=== PATIENT | female | born 1940 | race Caucasian/White ===

== ENCOUNTER 2018-04-14 04:20 | Inpatient (IN) ==
--- NOTE | 2018-04-14 04:30 | Emergency Department Note ---
Disposition Clinical Impression: Urinary tract infection, Altered mental status Disposition: Transfer Short-Term Hosp Condition: Fair Time of Disposition: 06:10 ( will admit for observation) General Adult HPI - General Chief complaint: ED Urogenital-Female Stated complaint: possible uti/ams Time Seen by Provider: 04/14/18 04:22 Source: EMS, other ([facility] personnel) Mode of arrival: EMS Limitations: altered mental status Nursing Notes Reviewed: Yes Vital Signs Reviewed: Yes - History of Present Illness HPI Narrative: 77-year-old female who presented to the emergency department department via EMS with complaints of confusion per long term staff. Normally patient is alert and oriented 4, however this evening she has been confused to time and to events and what is occurring. Patient has had problems with recurrent urinary tract infections. 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 She reports that she really does not know why she is here in the ER, but long term reported that they will try to collect the urine from the patient and tried to do a CATh ua on her, and noted that patient had a lot of dry Tissue around her urethra area, and they had to end up taking normal saline to break up the tissue. Patient had this one got agitated, and ran out of the long term into the street, and had to be detained. Onset (ago): Just [employer] Radiation: non-radiation Pain Severity: mild Quality: burning Consistency: intermittent Improves with: nothing Worsens with: nothing Associated symptoms: Reports: confusion, weakness. Denies: chest pain, cough, diaphoresis, fever/chills, headaches, loss of appetite, malaise, nausea/vomiting Treatments Prior to Arrival: none - Related Data Home Medications Medication Instructions Recorded Confirmed Acetaminophen [Tylenol] 1,000 mg PO Q6HR 04/14/18 04/14/18 Albuterol Neb [Proventil Neb] 2.5 mg IH Q6HR 04/14/18 04/14/18 Alendronate Sodium [Fosamax] 35 mg PO QWEEK 04/14/18 04/14/18 Aspirin [Lo-Dose Aspirin EC] 81 mg PO QAM 04/14/18 04/14/18 Atorvastatin [Lipitor] 10 mg PO HS 04/14/18 04/14/18 Diltiazem CD (24hr) [Cardizem CD] 240 mg PO DAILY 04/14/18 04/14/18 Famotidine [Acid Controller] 20 mg PO BID 04/14/18 04/14/18 Furosemide [Lasix] 40 mg PO DAILY 04/14/18 04/14/18 Lactulose 45 ml PO PRN PRN 04/14/18 04/14/18 Metoprolol [Lopressor] 100 mg PO QAM 04/14/18 04/14/18 Ondansetron [Zuplenz] 4 mg PO PRN PRN 04/14/18 04/14/18 Polyethylene Glycol 3350 [MiraLAX] 17 gm PO DAILY 04/14/18 04/14/18 Rivaroxaban [Xarelto] 15 mg PO 1700 04/14/18 04/14/18 Sennosides [Senna] 8.6 mg PO QAM 04/14/18 04/14/18 Allergies Allergy/AdvReac Type Severity Reaction Status Date / Time iodine Allergy Hives Verified 04/14/18 04:22 levofloxacin [From Levaquin] Allergy Vomiting Verified 04/14/18 04:21 Limitations: ROS unobtainable due to patients medical condition (Patient is confused to events, and time) Physical Exam - General Limitations: no limitations General appearance: alert, in no apparent distress - Head Head exam: atraumatic, normocephalic, normal inspection - Eye Eye exam: Present: normal appearance, PERRL, EOMI - Expanded Eye Exam Pupils: Left: reactive - ENT ENT exam: normal exam, normal oropharynx, mucous membranes moist - Expanded ENT Exam External ear exam: Present: normal external inspection Mouth exam: Present: normal external inspection Teeth exam: Present: normal inspection Throat exam: Present: normal inspection - Neck Neck exam: Present: normal inspection, full ROM, trachea midline - Chest Chest inspection: Present: normal inspection, symmetric chest wall rise - Respiratory Respiratory exam: Present: normal lung sounds bilaterally - Cardiovascular Cardiovascular exam: Present: regular rate, normal rhythm, normal heart sounds - Abdominal Exam Abdominal exam: Present: soft, Non-Tender. Absent: tenderness, distention, guarding, rebound, rigidity - Extremities Exam Extremities exam: Present: normal inspection, full ROM. Absent: tenderness, pedal edema - Expanded Upper Extremity Exam Shoulder exam: Present: normal inspection, full ROM Arm exam: Present: normal inspection, full ROM Elbow exam: Present: normal inspection, full ROM Forearm/Wrist exam: Present: normal inspection, full ROM Hand exam: Present: normal inspection, full ROM Vascular exam: Normal: capillary refill, radial pulse - Expanded Lower Extremity Exam Hip/Pelvis exam: Present: normal inspection, full ROM Upper leg exam: Present: normal inspection, full ROM Knee exam: Present: normal inspection, full ROM Lower leg exam: Present: normal inspection, full ROM Ankle exam: Present: normal inspection, full ROM Foot/toe exam: Present: normal inspection, full ROM Neurovascular/Tendon exam: Absent: motor deficit, sensory deficit, tendon deficit - Back Exam Back exam: Present: normal inspection, full ROM. Absent: tenderness - Neurological Exam Neurological exam: Present: alert, other (Patient is able to follow commands, but she is confused.) - Expanded Neurological Exam Patient oriented to: Present: person, place Coma Scale Eye Opening: Spontaneous Coma Scale Motor Response: Obeys Commands Coma Scale Verbal Response: Oriented Coma Scale Total: 15 - Psychiatric Psychiatric exam: Present: normal affect, normal mood - Skin Skin exam: Present: warm, dry, intact, normal color Course Vital Signs Temperature 97.5 F L 04/14/18 04:25 Pulse Rate 100 04/14/18 04:25 Respiratory Rate 18 04/14/18 04:25 Blood Pressure 117/42 04/14/18 04:25 O2 Sat by Pulse Oximetry 96 04/14/18 04:25 Temperature 97.5 F L 04/14/18 04:25 Pulse Rate 92 04/14/18 06:09 Respiratory Rate 18 04/14/18 06:09 Blood Pressure 113/74 04/14/18 06:09 O2 Sat by Pulse Oximetry 100 04/14/18 06:09 Oxygen Delivery Oxygen Delivery Nasal Cannula Medical Decision Making - MDM Narrative Medical decision making narrative: CBC, chemistries urine analysis urine culture blood culture ABG was obtained patient was given a 1 L bolus of normal saline. Initially patient was hypotensive, and after 1 L of fluids her blood pressure did improve, her mentation has been improving since she has been here in the emergency department. I am not sure if this is a metabolic or if this is just due to severe dehydration, I do believe that patient at least once overwrought observation. - Medical Records Medical records reviewed: Yes I reviewed the patient's medical records. - Lab Data Lab results reviewed: Yes I reviewed the patient's lab results. Result diagrams: 07/23/18 04:55 04/14/18 04:55 Lab Results 04/14/18 04/14/18 04/14/18 Range/Units 04:40 04:40 04:55 WBC 8.4 (4.3-11.1) K/mcL RBC 3.81 L (3.82-4.97) M/mcL Hgb 10.5 L (11.5-15.4) g/dL Hct 32.8 L (35.3-44.9) % MCV 86.1 (83.0-100.0) fL MCH 27.6 L (28.0-33.3) pg MCHC 32.0 (31.6-35.5) g/dL RDW 17.0 H (11.5-14.5) % Plt Count 191 (140-400) K/mcL MPV 9.0 L (9.4-12.4) fL Immature Gran % 0.4 (0-4) % Seg Neutrophils % 71.3 % Lymphocytes % 14.3 % Monocytes % 11.9 % Eosinophils % 1.4 % Basophils % 0.7 % Neutrophils # 6.0 (1.6-8.9) K/mcL Lymphocytes # 1.2 (0.6-4.6) K/mcL Monocytes # 1.0 (0.0-1.3) K/mcL Eosinophils # 0.1 (0.0-0.6) K/mcL Basophils # 0.1 (0.0-0.2) K/mcL PT (9.4-12.1) Seconds INR APTT (26.0-36.0) Seconds Sample Site ABG pH (7.32-7.45) pH Units ABG pCO2 (35-45) mmHg ABG pO2 (85-104) mmHg ABG HCO3 (21-27) mEq/L ABG Total CO2 (20-26) mEq/L ABG O2 Saturation (95-98) % ABG Base Excess (-2 to 3) mEq/L [place] Test O2 Delivery Device Inspired O2 (1-15=lpm [id number]=%) Sodium (136-145) mEq/L Potassium (3.5-5.1) mEq/L Chloride (98-107) mEq/L Carbon Dioxide (23-29) mEq/L BUN (8-23) mg/dL Creatinine (0.60-1.20) mg/dL Est GFR ( Amer) (> 60) Est GFR (Non-Af Amer) (> 60) BUN/Creatinine Ratio (6-26) Glucose (70-105) mg/dL Calculated Osmolality (280-300) Calcium (8.6-10.3) mg/dL Total Bilirubin (0.3-1.0) mg/dL Direct Bilirubin (0.0-0.2) mg/dL Indirect Bilirubin (0.0-1.2) mg/dL AST (13-39) Units/L ALT (7-52) Units/L Alkaline Phosphatase (34-104) Units/L Troponin I (< 0.04) ng/mL Serum Total Protein (6.4-8.9) g/dL Albumin (3.5-5.7) g/dL Globulin (2.4-3.5) g/dL Albumin/Globulin Ratio (1.1-2.2) Urine Color Dark Yellow (Yellow) Urine Clarity Slightly Cloudy A (Clear) Urine pH 5.0 (5.0-8.0) pH Units Ur Specific [place] >= 1.030 H (1.010-1.025) Urine Protein 100 H (Neg-Trace) mg/dL Urine Glucose (UA) Normal (Normal) mg/dL Urine Ketones Negative (Negative) mg/dL Urine Blood Negative (Negative) Urine Nitrite Negative (Negative) Urine Bilirubin Small H (Negative) Urine Urobilinogen Normal (Normal) mg/dL Ur Leukocyte Esterase Negative (Negative) Urine Microscopic RBC 0-3 (0-3) per hpf Urine Microscopic WBC 0-3 (0-3) per hpf Ur Squamous Epith Cells Many H (None-Few) per lpf Calcium Oxalate Crystal Present Urine Bacteria Moderate H (None-Few) per hpf Hyaline Casts Moderate H (None-Few) per lpf Urine Mucus Many H (Few) Ur Culture Indicated? NO (NO) Urine Opiates Screen Negative (Hcjooi=996) ng/mL Ur Oxycodone Screen Negative (Cutoff= 100) ng/mL Ur Barbiturates Screen Negative (Uboxpj=951) ng/mL Ur Phencyclidine Scrn Negative (Cutoff=25) ng/mL Ur Amphetamines Screen Negative (Uttnge=6974) ng/mL U Benzodiazepines Scrn Negative (Laaxbt=671) ng/mL Urine Cocaine Screen Negative (Cutoff= 300) ng/mL U Marijuana (THC) Screen Negative (Cutoff = 50) ng/mL Ur Drug Screen Interp See Below Ethyl Alcohol (Less than 10) mg/dL 04/14/18 04/14/18 04/14/18 Range/Units 04:55 04:55 05:45 WBC (4.3-11.1) K/mcL RBC (3.82-4.97) M/mcL Hgb (11.5-15.4) g/dL Hct (35.3-44.9) % MCV (83.0-100.0) fL MCH (28.0-33.3) pg MCHC (31.6-35.5) g/dL RDW (11.5-14.5) % Plt Count (140-400) K/mcL MPV (9.4-12.4) fL Immature Gran % (0-4) % Seg Neutrophils % % Lymphocytes % % Monocytes % % Eosinophils % % Basophils % % Neutrophils # (1.6-8.9) K/mcL Lymphocytes # (0.6-4.6) K/mcL Monocytes # (0.0-1.3) K/mcL Eosinophils # (0.0-0.6) K/mcL Basophils # (0.0-0.2) K/mcL PT 31.1 H (9.4-12.1) Seconds INR 2.8 APTT 44.1 H (26.0-36.0) Seconds Sample Site R Radial ABG pH 7.41 (7.32-7.45) pH Units ABG pCO2 39 (35-45) mmHg ABG pO2 107 H (85-104) mmHg ABG HCO3 25 (21-27) mEq/L ABG Total CO2 26 (20-26) mEq/L ABG O2 Saturation 98 (95-98) % ABG Base Excess 0 (-2 to 3) mEq/L [place] Test Positive O2 Delivery Device Cannula Inspired O2 2.0 (1-15=lpm ph31-873=%) Sodium 139 (136-145) mEq/L Potassium 3.7 (3.5-5.1) mEq/L Chloride 104 (98-107) mEq/L Carbon Dioxide 27 (23-29) mEq/L BUN 14 (8-23) mg/dL Creatinine 1.31 H (0.60-1.20) mg/dL Est GFR ( Amer) 48 L (> 60) Est GFR (Non-Af Amer) 39 L (> 60) BUN/Creatinine Ratio 11 (6-26) Glucose 114 H (70-105) mg/dL Calculated Osmolality 289 (280-300) Calcium 9.2 (8.6-10.3) mg/dL Total Bilirubin 1.0 (0.3-1.0) mg/dL Direct Bilirubin 0.2 (0.0-0.2) mg/dL Indirect Bilirubin 0.8 (0.0-1.2) mg/dL AST 14 (13-39) Units/L ALT 8 (7-52) Units/L Alkaline Phosphatase 75 (34-104) Units/L Troponin I < 0.03 (< 0.04) ng/mL Serum Total Protein 6.7 (6.4-8.9) g/dL Albumin 3.4 L (3.5-5.7) g/dL Globulin 3.3 (2.4-3.5) g/dL Albumin/Globulin Ratio 1.0 L (1.1-2.2) Urine Color (Yellow) Urine Clarity (Clear) Urine pH (5.0-8.0) pH Units Ur Specific [place] (1.010-1.025) Urine Protein (Neg-Trace) mg/dL Urine Glucose (UA) (Normal) mg/dL Urine Ketones (Negative) mg/dL Urine Blood (Negative) Urine Nitrite (Negative) Urine Bilirubin (Negative) Urine Urobilinogen (Normal) mg/dL Ur Leukocyte Esterase (Negative) Urine Microscopic RBC (0-3) per hpf Urine Microscopic WBC (0-3) per hpf Ur Squamous Epith Cells (None-Few) per lpf Calcium Oxalate Crystal Urine Bacteria (None-Few) per hpf Hyaline Casts (None-Few) per lpf Urine Mucus (Few) Ur Culture Indicated? (NO) Urine Opiates Screen (Gdjstt=120) ng/mL Ur Oxycodone Screen (Cutoff= 100) ng/mL Ur Barbiturates Screen (Yoikow=040) ng/mL Ur Phencyclidine Scrn (Cutoff=25) ng/mL Ur Amphetamines Screen ([place]=2666) ng/mL U Benzodiazepines Scrn (Srqjae=009) ng/mL Urine Cocaine Screen (Cutoff= 300) ng/mL U Marijuana (THC) Screen (Cutoff = 50) ng/mL Ur Drug Screen Interp Ethyl Alcohol < 10 (Less than 10) mg/dL - Radiology Data Radiology results reviewed: Yes I reviewed the patient's radiology results. Chest x-ray portable per radiology reading shows no acute process,, CT of head without contrast shows no acute abnormality - EKG Data EKG #1 EKG attestation: Yes I reviewed and interpreted this EKG. EKG results narrative: EKG shows A. fib, with rate controlled at 86. Rate: normal Rhythm: A.Fib Reading/QRS: normal
[2018-04-14] MEDS ORDERED: 0.9 % Sodium Chloride 1,000 ML IVC ONE (05:00)
[2018-04-14 05:06] LABS: Basophils # 0.1 K/mcL (0.0-0.2); Basophils % 0.7 %; Eosinophils # 0.1 K/mcL (0.0-0.6); Eosinophils % 1.4 %; Hematocrit 32.8 % (35.3-44.9); Hemoglobin 10.5 g/dL (11.5-15.4); Immature Granulocytes % 0.4 % (0-4); Lymphocytes # 1.2 K/mcL (0.6-4.6); Lymphocytes % 14.3 %; Mean Corpuscular Hemoglobin 27.6 pg (28.0-33.3); Mean Corpuscular Volume 86.1 fL (83.0-100.0); Monocytes % 11.9 %; Platelet Count 191 K/mcL (140-400); Red Blood Count 3.81 M/mcL (3.82-4.97); Segmented Neutrophils % 71.3 %
[2018-04-14] MEDS ORDERED: Benzonatate 100 MG CAPSULE PO PRN (05:12)
[2018-04-14 05:21] LABS: INR 2.8; Prothrombin Time 31.1 Seconds (9.4-12.1)
[2018-04-14 05:21] LABS: Bilirubin,Urine Small (Negative); Blood,Urine Negative (Negative); Clarity,Urine Slightly Cloudy (Clear); Color,Urine Dark Yellow (Yellow); Glucose,Urine (UA) Normal (Normal); Ketones,Urine Negative (Negative); Leukocyte Esterase,Urine Negative (Negative); Nitrite,Urine Negative (Negative); Protein,Urine 100 mg/dL (Neg-Trace); Specific Gravity,Urine >= 1.030 (1.010-1.025); Urobilinogen,Urine Normal (Normal)
[2018-04-14 05:24] LABS: Activated Partial Thrombo Time 44.1 Seconds (26.0-36.0)
[2018-04-14 05:26] LABS: Bacteria,Urine Moderate per hpf (None-Few); Hyaline Casts,Urine Moderate per lpf (None-Few); Mucus,Urine Many (Few); RBC,Urine 0-3 per hpf (0-3); Squamous Epithelial Cell,Urine Many per lpf (None-Few); WBC,Urine 0-3 per hpf (0-3)
[2018-04-14 05:27] LABS: Calcium Oxalate Crystals,Urine Present
[2018-04-14 05:31] LABS: Alanine Aminotransferase 8 Units/L (7-52); Albumin 3.4 g/dL (3.5-5.7); Alkaline Phosphatase 75 Units/L (34-104); Aspartate Amino Transferase 14 Units/L (13-39); BUN/Creatinine Ratio 11 (6-26); Bilirubin,Direct 0.2 mg/dL (0.0-0.2); Bilirubin,Indirect 0.8 mg/dL (0.0-1.2); Blood Urea Nitrogen 14 mg/dL (8-23); Calcium 9.2 mg/dL (8.6-10.3); Carbon Dioxide 27 mEq/L (23-29); Chloride 104 mEq/L (98-107); Ethanol < 10 mg/dL (Less than 10); Globulin 3.3 g/dL (2.4-3.5); Glucose 114 mg/dL (70-105); Osmolality,Calculated 289 (280-300); Potassium 3.7 mEq/L (3.5-5.1); Sodium 139 mEq/L (136-145); Total Protein 6.7 g/dL (6.4-8.9); Troponin I < 0.03 ng/mL (< 0.04); eGFR For African Americans 48 (> 60); eGFR For Non-African Americans 39 (> 60)
[2018-04-14 05:33] LABS: Amphetamine Screen,Urine Negative ng/mL (Cutoff=1000); Barbiturate Screen,Urine Negative ng/mL (Cutoff=200); Benzodiazepines Screen,Urine Negative ng/mL (Cutoff=200); Cannabinoid Screen,Urine Negative ng/mL (Cutoff = 50); Cocaine Screen,Urine Negative ng/mL (Cutoff= 300); Opiate Screen,Urine Negative ng/mL (Cutoff=300); Phencyclidine Screen,Urine Negative ng/mL (Cutoff=25)
[2018-04-14] MEDS: cefTRIAXone 2,000 MG in Water for inj. (sterile) 20 ML 20 ML IVP SCH (05:44)
[2018-04-14 05:49] LABS: ABG Base Excess 0 mEq/L (-2 to 3); ABG HCO3 25 mEq/L (21-27); ABG Oxygen Saturation 98 % (95-98); ABG PCO2 39 mmHg (35-45); ABG PH 7.41 pH Units (7.32-7.45); ABG PO2 107 mmHg (85-104); ABG TCO2 26 mEq/L (20-26)
--- NOTE | 2018-04-14 12:41 | Internal Med History&Physical ---
Date of Encounter: 04/14/18 Time of Encounter: 12:00 Assessment and Plan (1) Altered mental status Current visit: Yes Status: Acute Her mental status is appropriate but she has significant memory impairment. Will check additional labs and reassess in a.m. Qualifiers: Altered mental status type: unspecified Qualified Code(s): R41.82 - Altered mental status, unspecified (2) Anemia Current visit: Yes Status: Acute Order anemia testing in a.m. Qualifiers: Anemia type: unspecified type Qualified Code(s): D64.9 - Anemia, unspecified (3) Azotemia Current visit: Yes Status: Acute Duration unknown. Order IV fluids and recheck labs in a.m. (4) Folate deficiency Current visit: Yes Status: Acute Folate level was low at 4.0 on 07/05/2017. Recheck in a.m. (5) Impaired memory Current visit: Yes Status: Acute Baseline unknown. Reassess in a.m. Internal Medicine - H&P: HPI Chief complaint: Altered mental status Admitted From: Emergency Dept Plans for Post Hospital Care: Transfer [facility] History of present illness: Ms. Rubin is a 77 year old female who was sent from a local SNF after staff noted her to have confusion. The emergency room note reports staff had attempted to obtain urine by cath but the patient became agitated and ran out of the facility. She was apprehended, brought to emergency room and evaluated and admitted to [facility] floor for ongoing care needs. She is a fair historian. She has difficulty remembering many details of her past and present history. Past Med Surg Social Fam HX - Past Medical History Medical history: atrial fibrillation, CHF, GERD, hyperlipidemia, hypertension Psychiatric history: depression - Social History Smoking Status: Never smoker Smokeless Tobacco Status: No Alcohol use: none Drug use: none Internal Medicine - H&P: Meds Acetaminophen [Tylenol] 1,000 mg PO Q6HR 04/14/18 [History] Albuterol Neb [Proventil Neb] 2.5 mg IH Q6HR 04/14/18 [History] Alendronate Sodium [Fosamax] 35 mg PO QWEEK 04/14/18 [History] Aspirin [Lo-Dose Aspirin EC] 81 mg PO QAM 04/14/18 [History] Atorvastatin [Lipitor] 10 mg PO HS 04/14/18 [History] Diltiazem CD (24hr) [Cardizem CD] 240 mg PO DAILY 04/14/18 [History] Famotidine [Acid Controller] 20 mg PO BID 04/14/18 [History] Furosemide [Lasix] 40 mg PO DAILY 04/14/18 [History] Lactulose 45 ml PO PRN PRN 04/14/18 [History] Metoprolol [Lopressor] 100 mg PO QAM 04/14/18 [History] Ondansetron [Zuplenz] 4 mg PO PRN PRN 04/14/18 [History] Polyethylene Glycol 3350 [MiraLAX] 17 gm PO DAILY 04/14/18 [History] Rivaroxaban [Xarelto] 15 mg PO 1700 04/14/18 [History] Sennosides [Senna] 8.6 mg PO QAM 04/14/18 [History] 3 Allergy/AdvReac Type Severity Reaction Status Date / Time iodine Allergy Hives Verified 04/14/18 04:22 levofloxacin [From Levaquin] Allergy Vomiting Verified 04/14/18 04:21 All Systems PM: A 10-system review of systems was performed and is negative for pertinent findings except as documented above in the HPI. Review of systems: Gen.: She states her weight has been stable the past year Cardiovascular: She has history of hypertension, atrial fibrillation, and CHF ( details not known). She claims she had DVT many years ago but denies pulmonary embolism. She thinks she has had MA in the past but does not remember details. Respiratory: She is a lifelong nonsmoker and has no known chronic lung disease GI: She has had cholecystectomy and appendectomy. She denies disorders of her liver or exocrine pancreas : She had azotemia on labs in emergency room. She denies known chronic kidney disease. Neurologic: She reports her memory has been decreasing for several years. She reports being in a coma for 3-4 months many years ago but does not know the etiology. She is uncertain if she has a diagnosis of dementia. She denies large distribution strokes or seizures. Endocrine: She has presumed hyperlipidemia and is on Lipitor. She was unaware of this diagnosis. She denies diabetes or thyroid disease. Hematology/oncology: She had anemia on labs in emergency room. She denies internal malignancies or blood disorders. Psychiatric: She has anxiety and depression but denies other mental health issues [place] skeletal: She has DJD but denies gout or other bone joint or muscle disorders. - Constitutional Vitals: Temp Pulse Resp BP Pulse Ox 98.4 F 76 15 114/74 94 04/14/18 07:40 04/14/18 07:40 04/14/18 07:40 04/14/18 07:40 04/14/18 07:40 Exam: Gen.: She is a well-developed morbidly obese female lying in bed who appears in no acute distress HEENT: Head is atraumatic and normocephalic. Eyes: EOMI. There is no scleral icterus. Mouth: Mucosa is moist. Neck: Supple and nontender. There is no thyromegaly or adenopathy noted. Heart: Irregularly irregular without murmurs or gallops. Lungs: No wheezes or crackles are heard. Abdomen: She has a large abdomen. There are well-healed right lower quadrant and midline epigastric scars. No masses or guarding are noted. Extremities: She has mild venous stasis pigmentation changes of her feet. Dorsalis pedis and posttibial pulses are trace palpable bilaterally. Her feet are warm to touch. Neurologic: Mental status: She is talkative but is a fair historian at best. Cranial nerves: Smile is symmetric. Forehead wrinkles bilaterally. Tongue protrudes midline. EOMI. She is hard of hearing. Motor: There is no pronator drift. Cerebellar: Finger to nose is intact bilaterally. Skin: Warm and dry Internal Med - H&P Results - Labs CBC & Chem 7: 04/14/18 04:55 04/14/18 04:55
[2018-04-14] MEDS: 0.45 % Sodium Chloride w/KCl 20 MEQ/1,000 ML MLS IVC SCH (13:38)
[2018-04-14] MEDS ORDERED: Acetaminophen 325 MG TABLET PO PRN (16:24)
[2018-04-14] MEDS: *HR* Rivaroxaban 15 MG TABLET PO SCH (16:51)
[2018-04-15] MEDS: 0.45 % Sodium Chloride w/KCl 20 MEQ/1,000 ML MLS IVC SCH ×3 (00:14→22:11)
[2018-04-15] MEDS: cefTRIAXone 2,000 MG in Water for inj. (sterile) 20 ML 20 ML IVP SCH (06:24)
[2018-04-15 06:33] LABS: Basophils # 0.1 K/mcL (0.0-0.2); Basophils % 0.8 %; Eosinophils # 0.1 K/mcL (0.0-0.6); Eosinophils % 1.8 %; Hematocrit 33.2 % (35.3-44.9); Hemoglobin 10.4 g/dL (11.5-15.4); Immature Granulocytes % 0.3 % (0-4); Lymphocytes # 1.3 K/mcL (0.6-4.6); Lymphocytes % 18.3 %; Mean Corpuscular HGB Conc 31.3 g/dL (31.6-35.5); Mean Corpuscular Volume 86.2 fL (83.0-100.0); Mean Platelet Volume 9.1 fL (9.4-12.4); Monocytes # 0.8 K/mcL (0.0-1.3); Monocytes % 10.9 %; Platelet Count 181 K/mcL (140-400); Red Blood Count 3.85 M/mcL (3.82-4.97); Red Cell Distribution Width 17.2 % (11.5-14.5); Segmented Neutrophils % 67.9 %
[2018-04-15 06:54] LABS: BUN/Creatinine Ratio 11 (6-26); Blood Urea Nitrogen 11 mg/dL (8-23); Calcium 8.8 mg/dL (8.6-10.3); Carbon Dioxide 25 mEq/L (23-29); Chloride 108 mEq/L (98-107); Glucose 104 mg/dL (70-105); Magnesium 1.7 mg/dL (1.6-2.6); Osmolality,Calculated 290 (280-300); Potassium 4.2 mEq/L (3.5-5.1); Sodium 140 mEq/L (136-145); eGFR For African Americans > 60 (> 60); eGFR For Non-African Americans 52 (> 60)
[2018-04-15 07:43] LABS: Thyroid Stimulating Hormone 1.854 mcIU/mL (0.340-5.600)
[2018-04-15 09:12] LABS: Folate 11.3 ng/mL (3.0-16.0)
--- NOTE | 2018-04-15 12:11 | Internal Med Progress Note ---
Date of Encounter: 04/15/18 Time of Encounter: 09:45 - Assessment and plan (1) Altered mental status Current Visit: Yes Status: Acute Assessment and plan: April 15. Improved. Continue present therapy Qualifiers: Altered mental status type: unspecified Qualified Code(s): R41.82 - Altered mental status, unspecified (2) Anemia Current Visit: Yes Status: Acute Assessment and plan: April 15. Iron studies pending. B12 level was 374 and folate 11.3. Hemoglobin minimally changed 10.4. Qualifiers: Anemia type: unspecified type Qualified Code(s): D64.9 - Anemia, unspecified (3) Azotemia Current Visit: Yes Status: Acute Assessment and plan: April 15. Improved with BUN and creatinine 11 and 1.03 respectively. Continue present intervention. (4) Folate deficiency Current Visit: Yes Status: Acute Assessment and plan: April 15. Resolved. Folate level normal at 11.3. (5) Impaired memory Current Visit: Yes Status: Acute Assessment and plan: April 15. Appears improved. Continue to monitor. - Subjective Interval history: April 15. She has no new complaints. - Constitutional Vitals: Temp Pulse Resp BP Pulse Ox 97.8 F 80 18 100/61 100 04/15/18 10:46 04/15/18 10:46 04/15/18 10:46 04/15/18 10:46 04/15/18 10:46 Exam: She is resting comfortably in bed and appears in no acute distress. She seems more oriented in conversation today than yesterday. I reviewed her medications and lab results. Internal Medicine: Result - Labs CBC & Chem 7: 04/15/18 06:00 04/15/18 06:00 Labs: Short CBC 04/15/18 Range/Units 06:00 WBC 7.3 (4.3-11.1) K/mcL Hgb 10.4 L (11.5-15.4) g/dL Hct 33.2 L (35.3-44.9) % Plt Count 181 (140-400) K/mcL Neutrophils # 5.0 (1.6-8.9) K/mcL BMP 04/15/18 06:00 Sodium 140 Potassium 4.2 Chloride 108 H Carbon Dioxide 25 BUN 11 Creatinine 1.03 Glucose 104 Calcium 8.8 - ABG Interpretation ABG results: ABG ABG pH 7.41 pH Units (7.32-7.45) 04/14/18 05:45 ABG pCO2 39 mmHg (35-45) 04/14/18 05:45 ABG pO2 107 mmHg (85-104) H 04/14/18 05:45 ABG O2 Saturation 98 % (95-98) 04/14/18 05:45 PT/INR, D-dimer PT 31.1 Seconds (9.4-12.1) H 04/14/18 04:55 Consult Discharge Plan - Plan Referrals: Frank Justice MD [Primary Care Provider] - 1 week
[2018-04-15 16:10] LABS: % Iron Saturation 7 % (15-50); Ferritin 24 ng/mL (10-120); Iron 28 mcg/dL (50-170); Transferrin 287 mg/dL (203-362)
[2018-04-15] MEDS: *HR* Rivaroxaban 15 MG TABLET PO SCH (17:43)
[2018-04-16] MEDS: cefTRIAXone 2,000 MG in Water for inj. (sterile) 20 ML 20 ML IVP SCH (06:00)
[2018-04-16] MEDS: 0.45 % Sodium Chloride w/KCl 20 MEQ/1,000 ML MLS IVC SCH (06:00)
[2018-04-16 06:22] VITALS: BP 95/56
--- NOTE | 2018-04-16 09:35 | Discharge Summary ---
Date of Encounter: 04/16/18 Time of Encounter: 09:20 - Discharge Diagnosis (1) Altered mental status Priority: Primary Status: Resolved Qualifiers: Altered mental status type: unspecified Qualified Code(s): R41.82 - Altered mental status, unspecified (2) Anemia Priority: Secondary Status: Acute Qualifiers: Anemia type: iron deficiency Iron deficiency anemia type: unspecified iron deficiency Qualified Code(s): D50.9 - Iron deficiency anemia, unspecified (3) Impaired memory Priority: Secondary Status: Chronic (4) KELSEA (acute kidney injury) Priority: Secondary Status: Acute Hospital course: Ms. Rubin is a 77 year old female who was sent from a local [facility] after staff noted her to have confusion. The emergency room note reports staff had attempted to obtain urine by cath but the patient became agitated and ran out of the facility. She was apprehended, brought to emergency room and evaluated and admitted to [facility] for ongoing care needs. Initial orders were written by the emergency room physician. I saw her on April 14 and performed the history and physical. She was started empirically on Rocephin for possible UTI. Urine culture was not obtained. She had clinical improvement in mental status. There appeared to be persistent mild memory impairment. MMSE was not done but can be performed by her PCP at the [facility]. IV fluids were given and creatinine decreased to 1.03 with estimated GFR 52 by the day after admission. Lasix was held during hospitalization and will be restarted at a lower dose. Follow-up labs can be done at the [facility]. Anemia testing showed iron 28, transferrin saturation 7%, transferrin 287, ferritin 24, B12 374, and folate 11.3. She will be started on ferrous sulfate with vitamin C. Her PCP can monitor labs at senior care. She remained borderline hypotensive. Cardizem was discontinued and metoprolol dose was reduced. On April 16 she was stable for discharge back to [facility] where she will follow with her PCP Dr. Justice/Trista Pantoja CNP. - Time Spent with Patient Total time spent providing and/or coordinating discharge services: - Discharge Medications Prescriptions: Ascorbic Acid [Vitamin C] 500 mg PO DAILY 30 Days tablet.er Aspirin [Lo-Dose Aspirin EC] 81 mg PO Q48H 365 Days tablet. Ferrous Sulfate 325 mg PO DAILY 30 Days tablet Furosemide [Lasix] 20 mg PO DAILY 365 Days tablet Metoprolol XL (24 HR) Succ [Toprol XL] 25 mg PO DAILY 365 Days tab.er.24h Home Medications: Acetaminophen [Tylenol] 1,000 mg PO Q6HR 04/14/18 [History] Albuterol Neb [Proventil Neb] 2.5 mg IH Q6HR 04/14/18 [History] Alendronate Sodium [Fosamax] 35 mg PO QWEEK 04/14/18 [History] Atorvastatin [Lipitor] 10 mg PO HS 04/14/18 [History] Lactulose 45 ml PO PRN PRN 04/14/18 [History] Ondansetron [Zuplenz] 4 mg PO PRN PRN 04/14/18 [History] Polyethylene Glycol 3350 [MiraLAX] 17 gm PO DAILY 04/14/18 [History] Rivaroxaban [Xarelto] 15 mg PO 1700 04/14/18 [History] Sennosides [Senna] 8.6 mg PO QAM 04/14/18 [History] Ascorbic Acid [Vitamin C] 500 mg PO DAILY 30 Days tablet.er 04/16/18 [Rx] Aspirin [Lo-Dose Aspirin EC] 81 mg PO Q48H 365 Days tablet.dr 04/16/18 [Rx] Famotidine [Acid Controller] 20 mg PO BID PRN #0 04/16/18 [Rx] Ferrous Sulfate 325 mg PO DAILY 30 Days tablet 04/16/18 [Rx] Furosemide [Lasix] 20 mg PO DAILY 365 Days tablet 04/16/18 [Rx] Metoprolol XL (24 HR) Succ [Toprol XL] 25 mg PO DAILY 365 Days tab.er.24h 04/16 [Rx] Allergies/Adverse Reactions: 3 Allergy/AdvReac Type Severity Reaction Status Date / Time iodine Allergy Hives Verified 04/14/18 04:22 levofloxacin [From Levaquin] Allergy Vomiting Verified 04/14/18 04:21 Date of admission: 04/14/18 06:01 Primary care physician: Frank Justice MD - Constitutional Vitals: Temp Pulse Resp BP Pulse Ox 98.1 F 93 18 95/56 100 04/16/18 06:20 04/16/18 06:20 04/16/18 06:20 04/16/18 06:20 04/16/18 06:20 - Patient Status Disposition: Transfer SNF Condition: Fair - Discharge Instructions Follow Up With: Frank Justice MD [Primary Care Provider] - 1 week - Diet and Activity Activity: resume usual activities as tolerated Diet: advance to your usual diet
--- NOTE | 2018-04-16 09:43 | Physician Discharge Referral ---
ExtendedCare Referral Info Transfer To: [facility] Provider in Charge: Gordon Provider in Charge after Transfer: PCP (Frank Justice M.D.) - Diagnosis (1) Altered mental status Priority: Primary Status: Resolved (2) Anemia Priority: Secondary Status: Acute (3) Impaired memory Priority: Secondary Status: Chronic (4) KELSEA (acute kidney injury) Priority: Secondary Status: Acute Prognosis: Good Aware of Diagnosis: Patient Aware of Prognosis: Patient - Transfer Medications Prescriptions: Ascorbic Acid [Vitamin C] 500 mg PO DAILY 30 Days tablet.er Aspirin [Lo-Dose Aspirin EC] 81 mg PO Q48H 365 Days tablet. Ferrous Sulfate 325 mg PO DAILY 30 Days tablet Furosemide [Lasix] 20 mg PO DAILY 365 Days tablet Metoprolol XL (24 HR) Succ [Toprol XL] 25 mg PO DAILY 365 Days tab.er.24h Home Medications: Acetaminophen [Tylenol] 1,000 mg PO Q6HR 04/14/18 [History] Albuterol Neb [Proventil Neb] 2.5 mg IH Q6HR 04/14/18 [History] Alendronate Sodium [Fosamax] 35 mg PO QWEEK 04/14/18 [History] Atorvastatin [Lipitor] 10 mg PO HS 04/14/18 [History] Lactulose 45 ml PO PRN PRN 04/14/18 [History] Ondansetron [Zuplenz] 4 mg PO PRN PRN 04/14/18 [History] Polyethylene Glycol 3350 [MiraLAX] 17 gm PO DAILY 04/14/18 [History] Rivaroxaban [Xarelto] 15 mg PO 1700 04/14/18 [History] Sennosides [Senna] 8.6 mg PO QAM 04/14/18 [History] Ascorbic Acid [Vitamin C] 500 mg PO DAILY 30 Days tablet.er 04/16/18 [Rx] Aspirin [Lo-Dose Aspirin EC] 81 mg PO Q48H 365 Days tablet. 04/16/18 [Rx] Famotidine [Acid Controller] 20 mg PO BID PRN #0 04/16/18 [Rx] Ferrous Sulfate 325 mg PO DAILY 30 Days tablet 04/16/18 [Rx] Furosemide [Lasix] 20 mg PO DAILY 365 Days tablet 04/16/18 [Rx] Metoprolol XL (24 HR) Succ [Toprol XL] 25 mg PO DAILY 365 Days tab.er.24h 04/16 [Rx] Allergies/Adverse Reactions: 3 Allergy/AdvReac Type Severity Reaction Status Date / Time iodine Allergy Hives Verified 04/14/18 04:22 levofloxacin [From Levaquin] Allergy Vomiting Verified 04/14/18 04:21 - Respiratory Orders Smoking Cessation: Smoking cessation has been advised. For more information, call the [employer] Quit Line at 4-955-YBIX-NOW. - Lab Orders Lab Orders: Other (include drug levels w/frequency) (CBC with differential, BMP , BNP peptide in one week) - Rehabiliation Orders Rehab Potential: Good Rehab Orders: Evaluation for Physical Therapy, Evaluation for Occupational Therapy - Diet Orders Regular CERTIFICATION: I certify that the transfer of the above named patient to an Extended Care Facility is necessary for the continuing treatment of the diagnosis listed. The above information is true and accurate reflection of patient's current condition. Confidential - Redisclosure prohibited without a patient's written consent.
--- NOTE | 2018-04-16 18:29 | Electrocardiograph Report ---
[address] [address] Test Date: 2018-04-14 Pat Name: Silvia Rubin Department: [id number] Room: [facility] Gender: F Tibco Developer: Gelacio : 1940 Requested By: Sydnie Weeks Order Number: [id number] Reading MD: Reji You Measurements Intervals Leroy Rate: 86 P: UT: 0 QRS: 17 QRSD: 105 T: 40 QT: 363 QTc: 407 Interpretive Statements ATRIAL FIBRILLATION WITH ABERRANT CONDUCTION OR VENTRICULAR PREMATURE COMPLEXES LOW QRS VOLTAGE IN PRECORDIAL LEADS Electronically Signed On 04-16-2018 18:27:50 EDT by Reji You
== END 2018-04-16 11:40 | DRG 690 ==
LOC: INPPIK 04:20 → EMEROOPIK 04:20 → OBSVTOIN 06:01 → INPPIK 06:36
PROVIDERS: ADMIT Internal Medicine; ATTEND Internal Medicine